=== PATIENT | male | born 1975 | race Caucasian/White ===

== ENCOUNTER 2018-09-28 07:00 | Inpatient (IN) | payer BC ==
[~2018-09-28] VITALS: Ht 185.4 cm; Wt 110.5 kg
[2018-11-15] VITALS (24 sets, daily range): BP systolic 113–139; BP diastolic 58–74; PULSE 64–86; RESP 10–20; Ht 185.4 cm; Wt 110.5 kg
[2018-11-15] MEDS ORDERED: CLON-412 PO (13:49)
[2018-11-15] MEDS ORDERED: HYDR-4011 PO (13:50)
--- NOTE | 2018-11-15 14:02 | HPN ---
Date/Time of Note Date/Time of Note DATE: 11/15/18 TIME: 14:02 Interval H&P Admission Note Pt. seen H&P reviewed: No system changes ROSEANNA YE PA-C Nov 15, 2018 14:02
--- NOTE | 2018-11-15 14:07 | PREAC ---
Date/Time of Note Date/Time of Note DATE: 11/15/18 TIME: 14:06 Anesthesia Eval and Record Evaluation Time Pre-Procedure Interview DATE: 11/15/18 TIME: 14:06 Age 43 Sex male NPO: 8 hrs Preoperative diagnosis lumbar ddd Planned procedure L3-5 Microdiscectomy Past Medical History Past Medical History: Includes GI: Obesity Surgery & Anesthesia Issues No known issue Meds Anticoagulation: No Beta Yahaira within 24 hr: No Reason Beta Yahaira not given: Pt. not on B-Yahaira Reported Medications Hydrocodone/Acetaminophen ([place] 5-325 Tablet) 1 Each Tablet, 2 EACH PO Q4H WHILE AWAKE PRN for PAIN, TAB 11/15/18 Clonazepam* (Klonopin*) 1 Mg Tablet, 1 MG PO QHS, TAB 11/15/18 Current Medications Potassium Chloride/Dextrose/ Sod Cl 1,000 ml @ 100 mls/hr Q10H IV ; Start 11/15/18 at 14:02; Status UNV Acetaminophen/ Hydrocodone Bitart ([place] (10/325)) 1 tab Q4H PRN PO .PAIN 1-5; Start 11/15/18 at 14:30; Status UNV Acetaminophen/ Hydrocodone Bitart ([place] (10/325)) 2 tab Q4H PRN PO .PAIN 6-10; Start 11/15/18 at 14:30; Status UNV Hydromorphone HCl (Dilaudid) 0.2 mg Q1H PRN IV .BREAKTHROUGH PAIN; Start 11/15/18 at 14:30; Status UNV Cefazolin Sodium 50 ml @ 100 mls/hr Q8H IVPB ; Start 11/15/18 at 14:30; Stop 11/16/18 at 06:59; Status UNV Ondansetron HCl (Zofran Inj) 4 mg Q6H PRN IV NAUSEA/VOMITING; Start 11/15/18 at 14:30; Status UNV Bisacodyl (Dulcolax Supp) 10 mg DAILY PRN [place] .CONSTIPATION; Start 11/15/18 at 14:30; Status UNV Docusate Sodium (Colace) 100 mg BID PO ; Start 11/15/18 at 21:00; Status UNV Al Hydrox/Mg Hydrox/Simethicone (Mag-Al Plus) 15 ml Q6H PRN PO .CONSTIPATION/DYSPEPSIA; Start 11/15/18 at 14:30; Status UNV Acetaminophen (Tylenol Tab) 650 mg Q4H PRN PO NEIL OR TEMP GREATER THAN 101.3F; Start 11/15/18 at 14:30; Status UNV Cyclobenzaprine HCl (Flexeril) 10 mg TID PRN PO .MUSCLE SPASMS; Start 11/15/18 at 14:30; Status UNV Phenol (Cepastat Lozenge) 1 lozenge PRN PRN [place] .SORE THROAT; Start 11/15/18 at 14:30; Status UNV Diphenhydramine HCl (Benadryl) 25 mg Q6H PRN PO .ITCHING; Start 11/15/18 at 14:30; Status UNV Diphenhydramine HCl (Benadryl) 25 mg Q6H PRN IV .ITCHING; Start 11/15/18 at 14:30; Status UNV Naloxone HCl (Narcan) 0.2 mg Q2M PRN IV .RR 8 BREATHS/MIN OR LESS; Start 11/15/18 at 14:30; Status UNV Meds reviewed: Yes Allergies Coded Allergies: No Known Allergy (Unverified , 11/15/18) Allergies Reviewed: Yes Labs/Studies Labs Reviewed: Reviewed by anesthesiologist test: N/A Pre-procedure Exam Last vitals Vital Signs Date Temp Pulse Resp B/P (MAP) Pulse Ox O2 O2 Flow FiO2 Time Delivery Rate 11/15/18 96.7 64 16 126/65 100 13:42 (85) Airway: Adequate mouth opening, Adequate thyromental dist Mallampati: Mallampati II Teeth: Normal Lung: Normal Heart: Normal ASA Physical Status ASA physical status: 2 Emergency: None Planned Anesthetic General/MAC: ETT Pre-operative Attestations Prior to commencing anesthesia and surgery, the patient was re-evaluated, there was verification of: *The patient's identity *The results of appropriate recent lab work and preoperative vital signs *The above evaluation not changing prior to induction *Anesthetic plan, risk benefits, alternative and complications discussed with patient/family; questions answered; patient/family understands, accepts and wishes to proceed. URVASHI DALEY Nov 15, 2018 14:07
[2018-11-15] MEDS ORDERED: MIDAZOLAM 1 MG/ML 2 ML INJ ONE (14:09)
[2018-11-15] MEDS ORDERED: SURGIFOAM POWDER 1 GM KIT ONE (14:18)
[2018-11-15] MEDS ORDERED: BUPIVACAINE 0.25% (MPF) 30 ML INJ ONE (14:18)
[2018-11-15] MEDS ORDERED: BUPIVACAINE 0.5%/EPI (SDV) 30 ML INJ ONE (14:19)
[2018-11-15] MEDS ORDERED: POLYMYXIN/BACITRACIN 1L IRRIG ONE (14:19)
[2018-11-15] MEDS ORDERED: FENTAnyl 50 MCG/ML VIAL ONE (14:28)
[2018-11-15] MEDS ORDERED: DIPHENHYDRAMINE 25 MG CAP PO PRN (14:30)
[2018-11-15] MEDS ORDERED: CEPASTAT LOZENGE MT PRN (14:30)
[2018-11-15] MEDS ORDERED: FENTAnyl 50 MCG/ML VIAL IV PRN ×2 (14:30)
[2018-11-15] MEDS ORDERED: NALOXONE (0.4 MG/ML) INJ IV PRN (14:30)
[2018-11-15] MEDS: CEFAZOLIN 1 GM/50 ML (PMX) 50 ML IVPB SCH ×2 (14:30→22:13)
[2018-11-15] MEDS ORDERED: ALBUTEROL 0.083% (NEB) 2.5 MG/3 ML AMP HHN PRN (14:30)
[2018-11-15] MEDS ORDERED: ONDANSETRON 4 MG INJ IV PRN ×2 (14:30)
[2018-11-15] MEDS ORDERED: BISACODYL 10 MG SUPP PR PRN (14:30)
[2018-11-15] MEDS ORDERED: HYDROmorphONE 1 MG/5 ML IV SYRINGE IV PRN ×2 (14:30)
[2018-11-15] MEDS ORDERED: METOCLOPRAMIDE 10 MG INJ IV PRN (14:30)
[2018-11-15] MEDS ORDERED: DIPHENHYDRAMINE 50 MG INJ IV PRN ×2 (14:30)
[2018-11-15] MEDS ORDERED: MEPERIDINE 25 MG INJ IV PRN (14:30)
[2018-11-15] MEDS ORDERED: HYDROCODONE/APAP (10/325) TAB PO PRN (14:30)
[2018-11-15] MEDS ORDERED: ACETAMINOPHEN 325 MG TAB PO PRN (14:30)
[2018-11-15] MEDS ORDERED: AL HYDROX/MG HYDROX/SIMETH 30 ML CUP PO PRN (14:30)
[2018-11-15] MEDS ORDERED: HEPARIN 1000 UNITS/ML 10 ML INJ ONE (15:01)
[2018-11-15] MEDS ORDERED: CA CHLORIDE 10% 10 ML SYRINGE ONE (15:01)
[2018-11-15] MEDS ORDERED: DEXAMETHASONE 4 MG/ML 5 ML INJ ONE (15:06)
[2018-11-15] MEDS: THROMBIN (BOVINE) 5,000 UNIT VIAL TP ONE ×2 (15:18→15:19)
[2018-11-15] MEDS ORDERED: SUGAMMADEX SODIUM 200 MG/2 ML VIAL IV ONE (16:48)
[2018-11-15] MEDS ORDERED: CEFAZOLIN 1 GM INJ ONE (16:48)
[2018-11-15] MEDS ORDERED: ROCURONIUM 50 MG INJ ONE (16:48)
[2018-11-15] MEDS ORDERED: PROPOFOL 40 ML ONE (16:48)
[2018-11-15] MEDS ORDERED: SUCCINYLCHOLINE CHLORIDE 100 MG/5 ML SYG IV ONE (16:48)
[2018-11-15] MEDS ORDERED: LIDOCAINE 100 MG SYRINGE ONE (16:48)
--- NOTE | 2018-11-15 17:01 | SIPON ---
Date/Time of Note Date/Time of Note DATE: 11/15/18 TIME: 17:01 Operative Report Preoperative Diagnosis Lumbar stenosis Postoperative Diagnosis Lumbar stenosis Operation/Procedure Performed Lumbar decompression Surgeon see signature line personal banking assistant Chato Anesthesia: general Estimated blood loss: 10 - 50 ml's Transfusion Required none Specimen Disc Grafts/Implants none Complications none SARAH SERRANO MD Nov 15, 2018 17:01
[2018-11-15] MEDS: HYDROmorphONE 1 MG/5 ML IV SYRINGE IV PRN ×4 (17:24→17:41)
--- NOTE | 2018-11-15 17:39 | OPR ---
DATE OF OPERATION: 11/15/2018 PREOPERATIVE DIAGNOSIS: Left L4 to L5 and L5 to S1 stenosis with radiculopathy. POSTOPERATIVE DIAGNOSES: 1. Left L4 to L5 and L5 to S1 stenosis with radiculopathy. 2. 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 PROCEDURES: 1. Left L4 to L5 and L5 to S1 decompression with decompression of L4, L5 and S1 nerve roots for sten osis. 2. Left L4 to L5 lumbar microdiskectomy. 3. Lateral localizing film x2. 4. Use of operative microscope. 5. Intraoperative neuromonitoring. 6. Microscopic neurolysis. PRIMARY SURGEON: Donny Downs MD AUTOMOTIVE SERVICE MANAGER: Kathy Reis PA-C NEED FOR DIRECTOR TRADE: During this spinal surgical procedure, my administrative services assistant was used to retract and protect the spinal nerves and dural sac. My administrative services assistant also employed the suction catheters to ev acuate blood from the surgical field to improve visualization of the neural structures. The assistan t was medically necessary to facilitate the completion of the surgery in a safe and expeditious [facility]. [facility] regulations, as well as hospital bylaws, preclude the use of non-licensed [facility] care personnel, such as operating room technicians, to perform these functions. FINDINGS: Neuromonitoring at the start of the case revealed left L4 amplitude down 50%, left L5 down 40%, left S1 down 20%. At the end of the case, nerve signals returned to normal. The patient had s tenosis from L4 to the sacrum and had a conjoined L5 to S1 nerve root which was significantly chris sed and edematous with vessels compressing the nerve. ESTIMATED BLOOD LOSS: Less than 60 mL. DRAINS: None. SPECIMENS: L4 to L5 disk. COMPLICATIONS OF PROCEDURES: None. ANESTHESIOLOGIST: Tru Du MD TYPE OF ANESTHESIA: General. INDICATIONS FOR PROCEDURE: This is a 43-year-old gentleman with left lumbar radiculopathy. Nerve te st preoperatively showed severe L5 denervation. The patient had stenosis and therefore is recommende d that he undergo the above procedure. Preoperatively, we discussed risks, benefits and alternatives . He understood and wished to proceed. DESCRIPTION OF PROCEDURE IN DETAIL: The patient was identified in the preoperative holding area, gi en Ancef antibiotic, taken to the operating room, where he was successfully placed under general anes thesia. Neuromonitoring leads were placed. Sequential compressive devices were applied. Remote int raoperative neuromonitoring was performed by Dr. Holland from 14:18 until 16:55 to include SSEP, ME P and EMG performed by TM. The patient was placed on the operating table in prone posi tion over a Med frame. All bony prominences were padded. The back was then prepped and draped in usual sterile fashion. I placed needles and took lateral film to confirm the correct levels. Once this was confirmed, I injected Marcaine and epinephrine. Incision was then made over the L4 to L5 an d L5 to S1 levels. Incision was taken down to dorsal fascia which was incised with Bovie cautery. I then subperiosteally dissected the L4 and L5 lamina. Initially, I performed hemilaminotomies at L4 and L5. Microscope was brought in next. I then removed the ligamentum flavum at the L4 to L5 level. I then identified the L4 and L5 nerve roots which I decompressed. There is a small herniation at t his level adding to the stenosis and therefore in addition to the decompression of the nerve roots, I also performed annulotomy followed by limited microdiskectomy. I then turned my attention to the L5 to S1 level. I removed the ligamentum flavum. At this point, I encountered the conjoined L5 to S1 nerve root. This could not be mobilized to visualize the annulus. I therefore had to complete the h emilaminotomy and turned this into a hemilaminectomy. This was quite difficult due to the conjoined nerve root and risk of dural tears. Furthermore, there are vessels surrounding the nerve root and th erefore, I did perform a microscopic neurolysis in order to mobilize the dura. In addition to the de compression, performing the microdiskectomy and the decompression in the setting of a conjoined nerve root, 45 minutes were added to the procedure beyond normal. This alteration of the field complicate d the procedure. Once I thoroughly decompressed the area, all nerve signals returned to normal. I i rrigated the wound. Hemostasis was achieved. Thrombin and PPP was injected over the dura for hemost atic purposes. The retractors were removed. I closed deep fascia with #1 Vicryl stitch. I then dusty sed subcutaneous tissue with a 2-0 Vicryl stitch. Microscope was taken off the field. A 4-0 Monocry l closure was then performed. Dermabond was then applied. The patient was awakened from anesthesia and taken to the recovery room in stable condition. Lap, sponge and needle counts were correct x2. There were no apparent complications during the procedure. The patient will be admitted to the orthopedic mat[facility] for routine postoperative care to include pain co ntrol, neurovascular checks, antibiotics and physical therapy. Dictated By: DONNY MOISE/KAITY Conf#: [id number] DID#: [id number]
[2018-11-15] MEDS: FENTAnyl 50 MCG/ML VIAL IV PRN ×2 (17:53→18:14)
[2018-11-15] MEDS: D5W-0.45 NACL + KCL 20 MEQ 1,000 ML IV SCH (18:12)
[2018-11-15] MEDS: HYDROmorphONE 0.5 MG/0.5 ML SYG IV PRN ×3 (18:38→23:17)
[2018-11-15] MEDS: CYCLOBENZAPRINE 10 MG TAB PO PRN (18:46)
[2018-11-15] MEDS: DOCUSATE SODIUM 100 MG CAP PO SCH (20:26)
[2018-11-15] MEDS: HYDROCODONE/APAP (10/325) TAB PO PRN (20:33)
[2018-11-16] MEDS: D5W-0.45 NACL + KCL 20 MEQ 1,000 ML IV SCH ×3 (00:02→16:05)
[2018-11-16] MEDS: clonAZEPAM 0.5 MG TAB PO PRN ×2 (00:07→22:10)
[2018-11-16 00:14] VITALS: BP 127/72; PULSE 86; RESP 18
[2018-11-16] MEDS: HYDROCODONE/APAP (10/325) TAB PO PRN ×2 (02:10→07:29)
[2018-11-16] MEDS: CYCLOBENZAPRINE 10 MG TAB PO PRN ×3 (02:10→23:03)
[2018-11-16] MEDS: HYDROmorphONE 0.5 MG/0.5 ML SYG IV PRN ×6 (03:16→23:53)
[2018-11-16 04:20] VITALS: BP 124/78; PULSE 76; RESP 18
[2018-11-16] MEDS: CEFAZOLIN 1 GM/50 ML (PMX) 50 ML IVPB SCH (05:33)
[2018-11-16 08:23] VITALS: BP 121/73; PULSE 77; RESP 18
[2018-11-16] MEDS: DOCUSATE SODIUM 100 MG CAP PO SCH ×2 (08:39→21:18)
--- NOTE | 2018-11-16 09:30 | PAC ---
Date/Time of Note Date/Time of Note DATE: 11/16/18 TIME: 09:30 Post-Anesthesia Notes Post-Anesthesia Note Last documented vital signs Vital Signs Date Temp Pulse Resp B/P (MAP) Pulse Ox O2 O2 Flow FiO2 Time Delivery Rate 11/16/18 98.2 77 18 121/73 98 Room Air 08:23 (89) 11/15/18 8.0 17:07 Activity: WNL Respiratory function: WNL Cardiovascular function: WNL Mental status: Baseline Pain reasonably controlled: Yes Hydration appropriate: Yes Nausea/Vomiting absent: Yes URVASHI DALEY Nov 16, 2018 09:30
--- NOTE | 2018-11-16 10:44 | PN ---
Date/Time of Note Date/Time of Note DATE: 11/16/18 TIME: 10:43 Assessment/Plan Lines/Catheters IV Catheter Type (from Nrsg): Peripheral IV Castillo in Place (from Nrsg): No Assessment/Plan Assessment/Plan POD #1 s/p microdiscectomy not yet cleared by PT ambulate, continue PT pain control routine care Subjective 24 Hr Interval Summary c/o post-operative back and left leg pain Exam/Review of Systems Vital Signs Vitals Vital Signs Date Temp Pulse Resp B/P (MAP) Pulse Ox O2 O2 Flow FiO2 Time Delivery Rate 11/16/18 98.2 77 18 121/73 98 Room Air 08:23 (89) 11/15/18 8.0 17:07 Intake and Output 11/15/18 11/15/18 11/16/18 1515:00 23:00 07:00 IntakeIntake Total 1350 ml 1400 ml OutputOutput Total 10 ml 2150 ml BalanceBalance 1340 ml -750 ml Exam Free Text/Dictation AOx3 exam unchanged incision c/d/i Results Result Diagram: 11/16/18 0424 11/16/18 0424 ROSEANNA YE PA-C Nov 16, 2018 10:44
[2018-11-16] MEDS ORDERED: HYDROCODONE/APAP (10/325) TAB PO PRN ×2 (11:00)
[2018-11-16] MEDS ORDERED: DEXAMETHASONE 10 MG/ML 1 ML INJ IV ONE (13:55)
[2018-11-16] MEDS ORDERED: OXYCODONE/ACETAMINOPHEN (10/325) TAB PO PRN (13:55)
[2018-11-16] MEDS: OXYCODONE/ACETAMINOPHEN (10/325) TAB PO PRN ×2 (14:06→21:18)
[2018-11-16 14:19] VITALS: BP 120/65; PULSE 76; RESP 18
[2018-11-16 20:18] VITALS: BP 124/77; PULSE 75; RESP 16
[2018-11-16 23:41] VITALS: BP 127/71; PULSE 92; RESP 18
[2018-11-17] MEDS: OXYCODONE/ACETAMINOPHEN (10/325) TAB PO PRN ×3 (00:52→10:18)
[2018-11-17] MEDS: D5W-0.45 NACL + KCL 20 MEQ 1,000 ML IV SCH (05:35)
[2018-11-17] MEDS: DOCUSATE SODIUM 100 MG CAP PO SCH (07:43)
[2018-11-17] MEDS: CYCLOBENZAPRINE 10 MG TAB PO PRN (07:43)
[2018-11-17 08:05] VITALS: BP 127/75; PULSE 66; RESP 18
[2018-11-17] MEDS: HYDROmorphONE 0.5 MG/0.5 ML SYG IV PRN (11:17)
--- NOTE | 2018-11-22 09:12 | DS ---
DATE OF ADMISSION: 11/15/2018 DATE OF DISCHARGE: 11/17/2018 ADMITTING DIAGNOSIS: Lumbar stenosis. DISCHARGE DIAGNOSIS: Lumbar stenosis. PROCEDURE: Lumbar decompression. HOSPITAL COURSE: The patient was taken to the operating room on 11/15/2018 underwent lumbar decompre ssion. His postoperative course was uncomplicated. By postoperative day 2, he was deemed stable for discharge. Followup arranged with the undersigned. Dictated By: SARAH SERRANO MD BB/NTS Conf#: [id number] DID#: [id number] CC: SARAH SERRANO MD;*EndCC*
== END 2018-11-17 14:16 | disposition home or self-care (01) | DRG 520 ==
LOC: EDSTATUS 07:00 → REC 11-15 12:43 → MS1 11-15 15:30 → REC 11-15 15:35 → MS1 11-15 18:28
PROVIDERS: ADMIT Specialist; ATTEND Specialist
PROC: 0SB20ZZ Excision of Lumbar Vertebral Disc, Open Approach (ICD-10-PCS; 2018-11-15)
PROC: 01NR0ZZ Release Sacral Nerve, Open Approach (ICD-10-PCS; 2018-11-15)
PROC: 01NB0ZZ Release Lumbar Nerve, Open Approach (ICD-10-PCS; principal; 2018-11-15 14:30)
DX: M48.061 Spinal stenosis, lumbar region without neurogenic claudication (principal); M48.07 Spinal stenosis, lumbosacral region; M51.16 Intervertebral disc disorders with radiculopathy, lumbar region; M51.17 Intervertebral disc disorders with radiculopathy, lumbosacral region
CPT/HCPCS: 72020; 80048; 83735; 85025; 86999; 88304; 97116; 97162; 97530; J0690; J1100; J1170; J1200; J1644; J2001; J2175; J2250; J3010; J3480